=== PATIENT | female | born 1975 | race Caucasian/White ===

== ENCOUNTER 2017-11-15 01:35 | Emergency (ER) | payer BC ==
[~2017-11-15] VITALS: Ht 165.1 cm; Wt 64.8 kg
[2017-11-15] MEDS ORDERED: BACITRACIN28.4 GM TP (04:33)
[2017-11-15 04:49] VITALS: BP 134/83
== END 2017-11-15 04:52 | disposition left against medical advice (07) ==
LOC: EME 01:35
PROC: 0CQ0XZZ Repair Upper Lip, External Approach (ICD-10-PCS; principal; 2017-11-15)
DX: S01.511A Laceration without foreign body of lip, initial encounter (principal); W01.0XXA Fall on same level from slipping, tripping and stumbling without subsequent striking against object, initial encounter; Y92.008 Other place in unspecified non-institutional (private) residence as the place of occurrence of the external cause; F10.129 Alcohol abuse with intoxication, unspecified; S02.5XXA Fracture of tooth (traumatic), initial encounter for closed fracture; F17.200 Nicotine dependence, unspecified, uncomplicated
CPT/HCPCS: 70450; 70486; 72125; 99281; 99284